=== PATIENT | male | born 1965 | race Caucasian/White ===

== ENCOUNTER → 2020-09-26 | Outpatient (CLI) | payer OTHER ==
[~2020-09-26] MED LIST: ASPIR-LOW81 MG PO; ATORVASTATIN CA20 MG PO; CYCLOBENZAPRINE5 MG PO; DESYREL 50 MG T50 MG PO; IBUPROFEN600 MG PO; IBUPROFEN800 MG PO; IMDUR ER TAB 3030 MG PO; NEURONTIN300 MG PO; NORCO 7.5-3251 EACH PO; VIBRAMYCIN100 MG PO
== END ==
LOC: KOH-I 11:26
DX: J44.9 Chronic obstructive pulmonary disease, unspecified (principal)
CPT/HCPCS: 71046